=== PATIENT | female | born 1985 | race African-American/Black ===

== ENCOUNTER 2016-10-03 09:31 | Emergency (ER) | payer OTHER ==
[~2016-10-03] VITALS: Ht 170.2 cm; Wt 78.0 kg
[2016-10-03 09:38] VITALS: BP 115/57
[2016-10-03] MEDS ORDERED: IBUPROFEN 800MG TABLET PO ONE (10:00)
== END 2016-10-03 11:36 | disposition home or self-care (01) ==
LOC: ER 10:22
DX: S60.221A Contusion of right hand, initial encounter (principal); W20.8XXA Other cause of strike by thrown, projected or falling object, initial encounter; Y93.89 Activity, other specified; Y92.89 Other specified places as the place of occurrence of the external cause; Y99.8 Other external cause status
CPT/HCPCS: 29130; 73110; 73130; 99284